=== PATIENT | male | born 1980 | race Caucasian/White ===

== ENCOUNTER 2017-03-05 06:05 | Emergency (ER) | payer MEDICAID ==
--- NOTE | 2017-03-05 06:41 | ED Physician Chart ---
Chief Complaint/HPI - Patient Information Date Seen:: 03/05/17 Time Seen:: 06:30 Chief Complaint:: burn History of Present Illness:: hot grease versus left arm 2 1/2 days ago. Here for dressing of the burn. 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 Reviewed Review of Systems - Review of Systems General/Constitutional: No fever, No chills Skin: Skin lesions Head: Headache Eyes: No loss of vision ENT: No earache Neck: No neck pain Cardio Vascular: No chest pain, No palpitations Pulmonary: No SOB GI: No nausea, No vomiting G/U: No dysuria, No hematuria Musculoskeletal: No bone or joint pain Endocrine: No polyuria, No polydipsia Psychiatric: No prior psych history, No depression Hematopoietic: No bruising Allergic/Immuno: No urticaria Neurological: No syncope, No focal symptoms Past Medical History - Past Medical History Past Medical History: No significant medical hx Family History: Heart disease, Diabetes Melitus, HTN Social History: Smoker, Alcohol, Other (occasional alcohol) Surgical History: None Psychiatricy History: None Medication: None Family Medical History - Family Member Father History Unknown: Yes Ethnicity: Non- Living Status: Still Living Hx Family Cancer: Yes Hx Family Coronary Artery Disease: Yes Hx Family Congestive Heart Failure: No Hx Family Hypertension: Yes Hx Family Stroke: No Hx Family Diabetes: Yes Hx Family Seizures: No Hx Family Dementia: No Hx Family AIDS: No Hx Family HIV: No Hx Family COPD: Yes Hx Family Hepatitis: No Hx Family Psychiatric Problems: No Hx Family Tuberculosis: No Physical Exam - Physical Examination General/Constitutional: Well-developed, well-nourished, Alert, No distress Head: Atraumatic Eyes: Lids, conjuctiva normal, PERRL Other Skin comments:: There are a few de-roofed vesicles up to about 1 cm in diameter on the left forearm with mild erythema of the mid volar left forearm. The largest intact vesicle is about 4 x 3 cm and is at the volar aspect of the left wrist. ENMT: External ears, nose nl Neck: No nuchal rigidity Respiratory: Nl effort/Exclusion Cardio Vascular: RRR GI: No tenderness/rebounding/guarding : No CVA tenderness Other Extremities comments:: See above under skin Neuro/Psych: Alert/oriented, No focal deficits ED Septic Shock - . Is Septic Shock (SBP<90, OR Lactate>4 mmol\L) present?: No - <6hrs of presentation: Vital Signs: Vital Signs - 8 hr 03/05/17 06:05 Temp 97.6 F HR 69 RR 17 BP 119/76 O2 Sat % 98 Reassessment (Disposition) - Reassessment Reassessment:: Silvadene and dressing to be applied. Reassessment Condition:: Unchanged - Diagnosis Diagnosis:: Second-degree burn left forearm possibly infected. - Aftercare/Follow up Instructions Aftercare/Follow-Up Instructions:: Refer to Discharge Instructions Medication Prescribed:: Hypotension for Keflex Keflex 500 mg 4 times a day 10 days - Patient Disposition Discharge/Transfer:: [facility] Condition at Disposition:: Stable, Unchanged
== END 2017-03-05 06:58 | disposition still patient (30) ==
LOC: ER 06:05
DX: T22.212A Burn of second degree of left forearm, initial encounter (principal); F17.200 Nicotine dependence, unspecified, uncomplicated; X19.XXXA Contact with other heat and hot substances, initial encounter; Y93.89 Activity, other specified; Y92.89 Other specified places as the place of occurrence of the external cause; Y99.8 Other external cause status
CPT/HCPCS: Z7610